=== PATIENT | male | born 1980 | race Caucasian/White ===

== ENCOUNTER 2024-12-19 08:44 | Inpatient (IN) | payer BC, MEDICAID ==
[~2024-12-19] VITALS: Ht 182.9 cm; Wt 94.8 kg
[2024-12-19 08:46] VITALS: O2SAT 98
[2024-12-19 09:05] LABS: BASOPHILS % 0.3 % (0.0-2.0); EOSINOPHILS % 0.2 % (0.0-5.0); HEMATOCRIT. 46.8 % (42.0-52.0); HEMOGLOBIN. 16.1 g/dL (14.0-18.0); LYMPHOCYTES % 11.2 % (20.0-50.0); MEAN PLATELET VOLUME 9.2 fl (7.4-10.4); MONOCYTES % 4.8 % (2.0-8.0); NEUTROPHILS % 83.5 % (40.0-76.0); PLATELET 251 x1000/uL (130-400); RED BLOOD CELL COUNT 5.34 mill/uL (4.7-6.1); RED CELL DISTRIBUTION WIDTH 13.8 % (11.6-14.6)
[2024-12-19 09:44] LABS: CREATININE 1.7 mg/dL (0.6-1.3); UREA NITROGEN BLOOD 18.0 mg/dL (9-23)
[2024-12-19] MEDS: ONDANSETRON HCL 4MG/2ML INJ IV ONE (10:20)
[2024-12-19 11:00] VITALS: BP 126/74; PULSE 110; RESP 14; TEMP 37.0296
[2024-12-19 12:00] VITALS: BP 105/64; PULSE 105; RESP 20; TEMP 36.7; O2SAT 96
[2024-12-19] MEDS: NALOXONE HCL 0.4MG/ML 1ML VIAL IV NR (12:41)
[2024-12-19] MEDS ORDERED: IPRATROPIUM/ALBUTEROL 0.5-3(2.5)MG/3ML NEB ORI PRN (12:45)
[2024-12-19] MEDS ORDERED: ACETAMINOPHEN 325MG TABLET PO PRN ×2 (12:45)
[2024-12-19] MEDS ORDERED: MAGNESIUM/ALUMINUM HYDROXIDE/SIMETHICONE 30ML UDC PO PRN (12:45)
[2024-12-19] MEDS ORDERED: ONDANSETRON HCL 4MG/2ML INJ IV PRN (12:45)
[2024-12-19] MEDS ORDERED: CLONIDINE 0.1MG TABLET PO PRN (12:45)
[2024-12-19] MEDS ORDERED: DEXTROSE 50% WATER 50ML SYRINGE IV PRN (12:45)
[2024-12-19] MEDS: BLOOD SUGAR DIAGNOSTIC STRIP TEST SCH (13:00)
[2024-12-19] MEDS: DEXT 5%/0.45% NACL 1000ML 1,000 ML IV SCH (13:00)
[2024-12-19] MEDS: LEVOFLOXACIN 500MG PREMIX 100 ML IV ONE (15:41)
[2024-12-19] MEDS: INSULIN LISPRO 100 UNITS/ML SUBCUT SCH (15:59)
[2024-12-19 16:00] VITALS: BP 100/98; PULSE 90; RESP 16; TEMP 36.3; O2SAT 94
[2024-12-19] MEDS: THIAMINE HCL 100 MG in SODIUM CHLORIDE 0.9% 49 ML IV NR (18:13)
[2024-12-19 18:15] LABS: CLARITY URINE CLEAR (CLEAR); COLOR URINE YELLOW (YELLOW); GLUCOSE URINE NEGATIVE (NEGATIVE); KETONES URINE TRACE (NEGATIVE); LEUKOCYTE ESTERASE URINE NEGATIVE (NEGATIVE); NITRITE URINE NEGATIVE (NEGATIVE); OCCULT BLOOD URINE NEGATIVE (NEGATIVE); PH URINE 5.5 (4.5-8.0); PROTEIN URINE TRACE (NEGATIVE); SPECIFIC GRAVITY URINE 1.021 (1.005-1.030); UROBILINOGEN URINE 0.2 E.U./dL (0.2-1.0)
[2024-12-19 18:24] LABS: *AMPHETAMINES SCREEN URINE PRESUMPTIVE POSITIVE (NEGATIVE); *BARBITURATES SCREEN URINE NEGATIVE (NEGATIVE); *BENZODIAZEPINES SCREEN URINE NEGATIVE (NEGATIVE); *COCAINE SCREEN URINE PRESUMPTIVE POSITIVE (NEGATIVE); CANNABINOID URINE SCREEN NEGATIVE (NEGATIVE); ECSTASY MDMA SCREEN URINE NEGATIVE (NEGATIVE); METHADONE URINE SCREEN NEGATIVE (NEGATIVE); OPIATES URINE SCREEN PRESUMPTIVE POSITIVE (NEGATIVE); PHENCYCLIDINE URINE SCREEN NEGATIVE (NEGATIVE)
[2024-12-19 18:36] LABS: BACTERIA URINE 1+; RBC URINE 0-2 /hpf (0-2); SQUAMOUS EPITHELIAL CELL URINE FEW /lpf (RARE/1+); WBC URINE 0-2 /hpf (0-2)
[2024-12-19 18:37] LABS: COARSE GRANULAR CASTS URINE 0-5 /lpf
[2024-12-19 20:00] VITALS: BP 103/61; PULSE 82; RESP 18; TEMP 36.6; O2SAT 96
[2024-12-20] VITALS: BP 103/59; PULSE 87; RESP 17; TEMP 36.1; O2SAT 96
[2024-12-20 04:00] VITALS: BP 103/53; PULSE 80; RESP 18; TEMP 36.8; O2SAT 98
[2024-12-20 06:30] LABS: BASOPHILS % 0.2 % (0.0-2.0); EOSINOPHILS % 0.9 % (0.0-5.0); HEMATOCRIT. 40.6 % (42.0-52.0); HEMOGLOBIN. 13.9 g/dL (14.0-18.0); LYMPHOCYTES % 18.4 % (20.0-50.0); MEAN PLATELET VOLUME 9.6 fl (7.4-10.4); MONOCYTES % 5.0 % (2.0-8.0); NEUTROPHILS % 75.5 % (40.0-76.0); PLATELET 136 x1000/uL (130-400); RED BLOOD CELL COUNT 4.61 mill/uL (4.7-6.1); RED CELL DISTRIBUTION WIDTH 14.0 % (11.6-14.6)
[2024-12-20 06:53] LABS: CREATININE 0.8 mg/dL (0.6-1.3); UREA NITROGEN BLOOD 15 mg/dL (9-23)
[2024-12-20 06:55] LABS: PHOSPHORUS 3.2 mg/dL (2.5-4.9)
[2024-12-20 08:00] VITALS: BP 130/77; PULSE 89; RESP 18; TEMP 36.4; O2SAT 92
[2024-12-20 12:00] VITALS: BP 125/72; PULSE 98; RESP 18; TEMP 36.6; O2SAT 93
[2024-12-20 16:13] VITALS: BP 125/72; PULSE 98; RESP 18; TEMP 97.8
== END 2024-12-20 16:58 | disposition home or self-care (01) | DRG 917 ==
LOC: ER 08:51 → 5WST 09:28 → EDBEDREQ 10:20 → EDBEDREQTM 10:20 → ENRESERV 10:26
PROVIDERS: ADMIT Internal Medicine; ATTEND Internal Medicine
DX: T40.2X1A Poisoning by other opioids, accidental (unintentional), initial encounter (principal); G92.8 Other toxic encephalopathy; R65.10 Systemic inflammatory response syndrome (SIRS) of non-infectious origin without acute organ dysfunction; E11.9 Type 2 diabetes mellitus without complications; F10.10 Alcohol abuse, uncomplicated; Y90.2 Blood alcohol level of 40-59 mg/100 ml; Y92.89 Other specified places as the place of occurrence of the external cause
CPT/HCPCS: 36415; 71045; 80048; 80305; 80320; 81003; 82140; 82962; 83036; 83735; 84100; 85025; 93005; 99285; A4606; J1815; J1956; J2312; J2405; J3411; G0480